=== PATIENT | female | born 1995 ===

== ENCOUNTER 2020-01-12 08:21 | Emergency (ER) | payer BC ==
[~2020-01-12] VITALS: Ht 172.7 cm; Wt 56.7 kg
[2020-01-12] MEDS ORDERED: DICLOFENAC SODI75 MG PO (11:19)
== END 2020-01-12 11:30 | disposition home or self-care (01) ==
LOC: ER 08:21
DX: M79.645 Pain in left finger(s) (principal); M79.642 Pain in left hand

== ENCOUNTER 2021-03-28 13:00 | Inpatient (IN) | payer OTHER ==
[~2021-03-28] VITALS: Ht 172.7 cm; Wt 72.6 kg
[~2021-03-28 13:00] MED LIST: DICLOFENAC SODI75 MG PO
== END 2021-04-10 16:43 | disposition home or self-care (01) | DRG 807 ==
LOC: LDR 04-07 19:58 → OB/GYN 04-08 12:28
PROVIDERS: ADMIT Obstetrics & Gynecology Maternal & Fetal Medicine; ATTEND Obstetrics & Gynecology Maternal & Fetal Medicine
PROC: 10E0XZZ Delivery of Products of Conception, External Approach (ICD-10-PCS; principal; 2021-04-07)
PROC: 4A1HXFZ Monitoring of Products of Conception, Cardiac Rhythm, External Approach (ICD-10-PCS; 2021-04-07)
DX: O80 Encounter for full-term uncomplicated delivery (principal); Z37.0 Single live birth; Z3A.38 38 weeks gestation of pregnancy; Z20.822 Contact with and (suspected) exposure to COVID-19